=== PATIENT | male | born 1945 | race Two or more races ===

== ENCOUNTER 2021-08-12 10:01 | Outpatient (CLI) | payer OTHER | END 2021-08-12 10:02 | disposition home or self-care (01) | LOC: LAB 10:01 | PROVIDERS: ATTEND Urology | DX: R97.20 Elevated prostate specific antigen [PSA] (principal) ==

== ENCOUNTER 2021-09-20 07:31 | Outpatient (CLI) | payer OTHER | END 2021-09-20 07:37 | disposition home or self-care (01) | LOC: SONOGRAMA 07:31 | PROVIDERS: ATTEND Urology | DX: C61 Malignant neoplasm of prostate (principal) ==

== ENCOUNTER 2021-11-01 14:25 | Outpatient (CLI) | payer OTHER | END 2021-11-01 14:39 | disposition home or self-care (01) | LOC: TOM 14:25 | PROVIDERS: ATTEND Urology | DX: C61 Malignant neoplasm of prostate (principal) ==

== ENCOUNTER → 2021-11-13 07:13 | Outpatient (CLI) | payer OTHER | END | disposition home or self-care (01) | LOC: NUCLEAR 07:13 | PROVIDERS: ATTEND Urology | DX: C61 Malignant neoplasm of prostate (principal) | CPT/HCPCS: 78803; A9503 ==